=== PATIENT | female | born 2000 | race African-American/Black ===

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

== ENCOUNTER 2021-08-26 09:06 | Emergency (ER) | payer MEDICAID ==
[~2021-08-26] VITALS: Ht 149.9 cm; Wt 64.0 kg
[~2021-08-26 09:06] MED LIST: FERR325T6 PO
[2021-08-26 09:13] VITALS: BP 118/85
[2021-08-26] MEDS ORDERED: ACET-2708 MT (10:42)
[2021-08-26] MEDS ORDERED: LIDO700A15 TP (10:42)
[2021-08-26] MEDS ORDERED: BACL-141 MT (10:42)
[2021-08-26] MEDS ORDERED: ACETAMINOPHEN 325MG TABLET PO ONE (10:45)
== END 2021-08-26 11:05 | disposition home or self-care (01) ==
LOC: ER 09:06
DX: M54.50 Low back pain, unspecified (principal); R25.2 Cramp and spasm; V43.52XA Car driver injured in collision with other type car in traffic accident, initial encounter; Y93.89 Activity, other specified; Y92.488 Other paved roadways as the place of occurrence of the external cause
CPT/HCPCS: 99283